=== PATIENT | female | born 1980 | race Caucasian/White ===

== ENCOUNTER 2019-04-01 01:20 | Inpatient (IN) ==
[2019-04-01] MEDS ORDERED: Lidocaine 1% 20 ML MDV INFILT PRN (01:40)
[2019-04-01] MEDS ORDERED: *HR* Nalbuphine 10 MG/ML AMPUL IVP PRN (01:40)
[2019-04-01] MEDS ORDERED: Famotidine 20 MG/2 ML VIAL IVP PRN (01:40)
[2019-04-01] MEDS ORDERED: Ondansetron 4 MG/2 ML VIAL IVP PRN (01:40)
[2019-04-01] MEDS ORDERED: Metoclopramide 10 MG/2 ML VIAL IVP PRN (01:40)
[2019-04-01] MEDS ORDERED: Naloxone 0.4 MG/ML INJ IVP PRN (01:40)
--- NOTE | 2019-04-01 01:44 | OB/GYN History & Physical ---
Date of Encounter: 04/01/19 Time of Encounter: 01:43 Assessment and Plan (1) 38 weeks gestation of Current visit: Yes Status: Acute (2) Intrauterine Current visit: Yes Status: Acute (3) GBS screening not performed Current visit: Yes Status: Acute (4) Spontaneous rupture of amniotic membranes Current visit: No Status: Acute Admit to L&D for observation of labor Expectant management Continuous electronic monitoring GBS unknown-will treat prophylactically Plan of care per consult with Dr. Rand Anticipate vaginal delivery History of Present Illness Chief complaint: PROM HPI: Ms. Ambrose is a 39 year old female at 38 weeks and 4 days gestation with an estimated date of of 04/12/19 dated by LMP. She has received 0 care throughout her . She reports she [place] and had trouble because they do not have a car and her partner is changing jobs. She reports she spontaneously ruptured at 1800 on 03/31/19. She reports clear fluid that had no odor. labs are pending. She denies any complications with previous pregnancies. Past Med Surg Social Fam HX - Past Medical History Medical history: no medical history Psychiatric history: no psych history - Past Surgical History Surgical History: no surgical history - Social History Smoking Status: Never smoker Alcohol use: unknown Drug use: unknown - Family History Mother Family Member Ethnicity: Non- Living Status: Still Living Hx Family Cardiac Disorders: No Hx Family Respiratory Disorders: No Hx Family Cancer: No Hx Family GI Disorders: No Hx Family Genitourinary Disorders: No Hx Family Endocrine Disorder: No Hx Family Musculoskeletal Disorders: No Hx Family Neurologic Disorders: No Hx Family HEENT Disorders: No Hx Family Autoimmune Disorders: No Hx Family Reproductive Disorders: No Hx Family Psychosocial Disorders: No Hx Family Medical Disorders: No Obstetrical History - Pregnancies : 3 Para: 1 Term: 1 : 0 Ab's: 1 Livin Medications and Allergies [id number]/Iron Fumarate/FA/Dss [ 19 Tablet] 04/01/19 [History] Allergy/AdvReac Type Severity Reaction Status Date / Time No Known Allergies Allergy Verified 04/01/19 01:33 Review of System OB All systems PM: reviewed and no additional remarkable complaints except as stated Exam - Constitutional Constitutional: well developed, well nourished, no acute distress, average body habitus - HEENT HEENT: PERRL, Normocephaly, Mucus Membranes Moist - Neck Neck exam: full ROM - Lungs Respiratory exam: CTAB - Cardiovascular Cardiovascular exam: RRR, +S1, +S2 - Breasts Breast: bilateral: normal - Abdomen Abdomen: Present: bowel sounds normal, gravid, non tender - Extremities Extremities exam: full ROM, normal capillary refill, normal inspection, radial pulses palpable and symmetrical - Vulva Vulva: bilateral: normal - Vagina Vagina: Present: normal moisture, discharge - Cervix Cervix: Present: discharge Dilation: 4 Effacement: 70 Station: -2 - Uterus Uterus exam: Present: normal size, normal contour - Anus/Rectum Anus/Rectum: Present: normal perianal skin Results Result Diagrams: 04/01/19 01:45 All other labs normal. - VTE Reasons for not Prescribing Prophylaxis: Treatment not Indicated - Low risk for VTE
[2019-04-01] MEDS ORDERED: Oxytocin 20 units/ LR 1000 mL 20 UNIT/1,000 ML BAG IVC SCH ×2 (01:45→11:47)
[2019-04-01] MEDS ORDERED: Penicillin G Potassium 5,000,000 UNIT in 0.9 % Sodium Chloride Mini Bag 100 ML IVPB ONE (01:53)
[2019-04-01 02:02] LABS: Basophils # 0.1 K/mcL (0.0-0.2); Basophils % 0.3 %; Eosinophils # 0.1 K/mcL (0.0-0.6); Eosinophils % 0.8 %; Hematocrit 37.8 % (35.3-44.9); Hemoglobin 12.9 g/dL (11.5-15.4); Immature Granulocytes % 0.4 % (0-4); Lymphocytes # 1.9 K/mcL (0.6-4.6); Lymphocytes % 11.2 %; Mean Corpuscular HGB Conc 34.1 g/dL (31.6-35.5); Mean Corpuscular Hemoglobin 31.4 pg (28.0-33.3); Monocytes # 0.6 K/mcL (0.0-1.3); Monocytes % 3.8 %; Neutrophils # 13.8 K/mcL (1.6-8.9); Platelet Count 289 K/mcL (140-400); Red Blood Count 4.11 M/mcL (3.82-4.97); Red Cell Distribution Width 13.5 % (11.5-14.5); Segmented Neutrophils % 83.5 %; White Blood Count 16.5 K/mcL (4.3-11.1)
[2019-04-01] MEDS: Ringers Solution, Lactated 1,000 ML IVC SCH ×2 (02:17→06:13)
[2019-04-01 02:46] LABS: Amphetamine Screen,Urine Negative ng/mL (Cutoff=1000); Barbiturate Screen,Urine Negative ng/mL (Cutoff=200); Benzodiazepines Screen,Urine Negative ng/mL (Cutoff=200); Cannabinoid Screen,Urine Positive ng/mL (Cutoff = 50); Cocaine Screen,Urine Negative ng/mL (Cutoff= 300); Opiate Screen,Urine Negative ng/mL (Cutoff=300); Phencyclidine Screen,Urine Negative ng/mL (Cutoff=25)
[2019-04-01 02:53] LABS: Rubella IgG Antibody POSITIVE (POSITIVE); Varicella Zoster IgG Antibody Positive
[2019-04-01 04:11] LABS: HIV-1&2 Antibody & p24 Ag Nonreactive (Nonreactive)
[2019-04-01] MEDS ORDERED: Penicillin G Potassium 2,500,000 UNIT in 0.9 % Sodium Chloride 100 ML IVPB SCH (06:00)
[2019-04-01 06:36] LABS: Hepatitis B Surface Antigen Nonreactive (Nonreactive)
[2019-04-01] MEDS ORDERED: *HR* FentaNYL (PF) 100 MCG/2 ML VIAL EP ONE (07:44)
[2019-04-01] MEDS ORDERED: Ropivacaine/PF 0.2% 20 ML VIAL EP ONE (07:44)
[2019-04-01] MEDS ORDERED: Epidural Premix (fent/bupiv) 110 ML EP SCH (07:45)
--- NOTE | 2019-04-01 07:53 | Anesthesia Evaluation PreOp ---
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: Denies Any Significant HX Other Medical History: GERD Anesthesia History: No Prior Anesthetic Complications, Past Anesthesia (geronimo) : Yes Test: Positive Alcohol Use: unknown Drug use: unknown Medications and Allergies [id number]/Iron Fumarate/FA/Dss [ 19 Tablet] 04/01/19 [History] Allergy/AdvReac Type Severity Reaction Status Date / Time No Known Allergies Allergy Verified 04/01/19 01:33 - Meds/Allergy Pre-op Review Medications Reviewed: Yes Allergies Reviewed: Yes Beta Blockers on Current Med List: No Anesthesia Results - Labs 04/01/19 01:45 Anesthesia Exam 135/87 88 16 fht 133 Height: 5'3" Weight: 141 NPO (# of Hours): 2 Pain Scale: 7 Pain Scale Used: Numeric (1 - 10) - HEENT Pupil (Motor): Pupils equal Mallampati: II Teeth: Poor dentition Oral Opening: Greater than 3 - SCIENTIFIC PROCESS OPERATOR LOC: Oriented SCIENTIFIC PROCESS OPERATOR Motor: Normal RUE, Normal LUE, Normal RLE, Normal LLE, Normal Face SCIENTIFIC PROCESS OPERATOR Sensory: Normal: RUE, LUE, RLE, LLE, Face - Cardiac Rhythm: Regular Murmur: None - Pulmonary Breath Sounds: bilateral Rhonchi Respiratory Effort: Symmetrical Anesthesia Assess/Plan ASA Score: 2 Level of consciousness: Cooperative Anesthetic Plan: Epidural (risks discussed questions answered, consented) Autologous Blood: No Monitoring Plan: Standard Monitors Recovery Plan: Other
[2019-04-01] MEDS ORDERED: Epidural Premix (fent/bupiv) 110 ML EP ONE (07:55)
[2019-04-01] MEDS ORDERED: *HR* FentaNYL (PF) 100 MCG/2 ML VIAL ONE (07:56)
[2019-04-01] MEDS ORDERED: Ropivacaine/PF 0.2% 20 ML VIAL ONE (07:56)
--- NOTE | 2019-04-01 08:20 | Anesthesia Procedures ---
Date of Encounter: 04/01/19 Time of Encounter: 08:18 Procedures: Anesthesia - Epidural/Spinal Patient ID/Chart reviewed: Yes Patient examined: Yes OB Eval: Gestational age: 39 OB Eval: : 3 OB Eval: Hx Para: 1 OB Eval: Dilated at (cm): 5 OB Eval: Contractions: Non-stressed pattern Consent Obtained: Yes Supplemental Oxygen: None/Room Air Site Prep: Aseptic Technique, Sterile prep and drape, 0.5% Chlorhexidine/Alcohol Patient position: upright Local Anesthetic: Lidocaine 1% Amount of Local Anesthetic used: 3 Touhy Needle Gauge: 18 Touhy Needle Depth (cm): 5 Catheter Depth at Skin (cm): 15 Test Dose (1.5% Lido + Epi): Volume given (mls): 3 Test Dose Result: Negative Loading Dose: Fentanyl (mcg): 100 Loading Dose: Other: Rop 0.2% 5cc Loading Dose Administered: Thru Touhy Needle Infusion Med: 0.125% Bupivacaine w/ 2 mcg/ml Fentanyl Infusion Rate (mls/hr): [address]: Tegaderm Interspace Used: L2-L3 Loss of Resistance ([place]): Yes Blood: No CSF: No Paresthesia: No Procedure: aseptic, technique, VSS, effective Vitals + FHT's: see nsg note
--- NOTE | 2019-04-01 09:34 | OB/GYN Procedure Note ---
Delivery - Delivery Date: 04/01/19 Provider: Aura Rain Intrapartum events: none Delivery induction: none Delivery augmentation: pitocin Delivery monitor: external FHT, external uterine Anesthesia: epidural Quantitated Blood Loss: 150 - (s) Infant A Delivery Date: 04/01/19 Delivery Time: 09:10 Presentation: vertex Position: MARY Route of delivery: Gender: Female Viability: Viable at 1 minute: 9 at 5 mins: 9 Shoulder Dystocia: not encountered Specimens collected: cord blood Placenta: spontaneous Cord: 3 umbilical vessels - Repair Episiotomy: none Laceration Description: Superficial (superficial, hemostatic right vaginal wall) - Complications Delivery complications: none Delivery comments: Pt presented following SROM and underwent augmentation with pitocin. She progressed normally to complete and +2 and then pushed effectively to for viable female "Halyn" with apgars 9 at one minute and 9 at five minutes. After pulsations ceased the cord was clamped and cut and the placenta delivered spontaneous and intact. A superficial, hemostatic, right vaginal laceration was noted and was left unrepaired. EBL 150ml. Mother and baby stable in kangaroo care following . - Disposition Mom disposition: stable in LDR disposition: stable in LDR
[2019-04-01] MEDS ORDERED: Benzocaine/Menthol 56 GM AEROSOL SPRAY TP PRN (11:47)
[2019-04-01] MEDS ORDERED: Measles/Mumps/Rubella Vacc 0.5 ML VIAL SQ PRN (11:47)
[2019-04-01] MEDS ORDERED: Acetaminophen 325 MG TABLET PO PRN (11:47)
[2019-04-01] MEDS: Ibuprofen 600 MG TABLET PO PRN ×2 (12:59→21:30)
[2019-04-02] MEDS: Ibuprofen 600 MG TABLET PO PRN ×2 (04:51→09:15)
[2019-04-02 08:08] VITALS: BP 100/64
--- NOTE | 2019-04-02 08:36 | Discharge Summary ---
Date of Encounter: 04/02/19 Time of Encounter: 08:34 - Discharge Diagnosis (1) Vaginal delivery Priority: Primary Status: Acute Comments: Continue routine care discharge home follow up with GEOVANNI Chavarria in 4-6 weeks - Discharge Medications Prescriptions: New Benzocaine/Menthol [place] [Dermoplast [place]] 1 appl TP QID PRN aerosol PRN Reason: See Comments Continued [id number]/Iron Fumarate/FA/Dss [ 19 Tablet] Home Medications: Qci695/Iron Fumarate/FA/Dss [ 19 Tablet] 04/01/19 [History] Benzocaine/Menthol [place] [Dermoplast [place]] 1 appl TP QID PRN aerosol 04/02/19 [Rx] Allergies/Adverse Reactions: Allergy/AdvReac Type Severity Reaction Status Date / Time No Known Allergies Allergy Verified 04/01/19 01:33 Data Procedures and tests throughout hospitalization: Laboratory Tests 04/01/19 04/01/19 04/01/19 01:45 01:45 01:45 WBC RBC Hgb Hct MCV MCH MCHC RDW Plt Count MPV Immature Gran % Seg Neutrophils % Lymphocytes % Monocytes % Eosinophils % Basophils % Neutrophils # Lymphocytes # Monocytes # Eosinophils # Basophils # Urine Opiates Screen Negative Ur Buprenorphine Scrn Negative Ur Barbiturates Screen Negative Ur Phencyclidine Scrn Negative Ur Amphetamines Screen Negative U Benzodiazepines Scrn Negative Urine Cocaine Screen Negative U Marijuana (THC) Screen Positive H Ur Drug Screen Interp See Below T.pallidum Ab Interpret Negative Hep Bs Antigen Nonreactive HIV Ag/Ab Combo Qual Nonreactive Rubella IgG Antibody POSITIVE VZV IgG Antibody Positive Blood Type A POSITIVE 04/01/19 01:45 WBC 16.5 H RBC 4.11 Hgb 12.9 Hct 37.8 MCV 92.0 MCH 31.4 MCHC 34.1 RDW 13.5 Plt Count 289 MPV 10.0 Immature Gran % 0.4 Seg Neutrophils % 83.5 Lymphocytes % 11.2 Monocytes % 3.8 Eosinophils % 0.8 Basophils % 0.3 Neutrophils # 13.8 H Lymphocytes # 1.9 Monocytes # 0.6 Eosinophils # 0.1 Basophils # 0.1 Urine Opiates Screen Ur Buprenorphine Scrn Ur Barbiturates Screen Ur Phencyclidine Scrn Ur Amphetamines Screen U Benzodiazepines Scrn Urine Cocaine Screen U Marijuana (THC) Screen Ur Drug Screen Interp T.pallidum Ab Interpret Hep Bs Antigen HIV Ag/Ab Combo Qual Rubella IgG Antibody VZV IgG Antibody Blood Type Date of admission: 04/01/19 01:20 Consults: 04/01/19 11:47 Consult to Information Assurance [CONS] Routine Reason for SW Consult: no care Discharging clinician: Amalia Sorensen Anticipated date of discharge: 04/02/19 - Patient Status Disposition: Home, Self-Care Condition: Good Functional capacity at discharge: independent ambulation - Discharge Instructions Follow Up With: Aura Rain CNM [Non-Partnered Physician] - - Diet and Activity Activity: increase activity as tolerated Diet: regular diet Hospital Course Reason for admission: active labor Delivery: Episiotomy: none Other procedures: none complications: none Discharge diagnosis: IUP at term delivered [place] baby: female (bottle feeding) Time Attestation: Total time spent providing and/or coordinating discharge services: Time Spent: Less than 30 minutes Exam - Constitutional Vitals: Temp Pulse Resp BP Pulse Ox 98.0 F 72 16 100/64 99 04/02/19 07:40 04/02/19 07:40 04/02/19 07:40 04/02/19 07:40 04/02/19 07:40 General appearance IM: A&O X 3, pleasant, answers questions appropriately - Respiratory Respiratory exam: Present: CTAB - Cardiovascular Cardiovascular exam IM: Present: RRR, +S1, +S2 - GI/Abdominal GI/Abdominal exam IM: normal bowel sounds - Uterine Tone: Firm Uterus Position: At Umbilicus, Midline - Extremities Exam Extremities exam IM: Present: full ROM, normal capillary refill, normal inspection - Neurological Exam Neurological exam: alert, oriented X3, reflexes normal
[2019-04-02] MEDS ORDERED: Prenatal Vit/FA 1 EACH TABLET PO SCH (09:00)
== END 2019-04-02 10:30 | disposition home or self-care (01) | DRG 560 ==
LOC: 1NENULAB → OBSVTOIN 01:20 → 1NENUOBS 11:40
PROVIDERS: ADMIT Advanced Practice Midwife; ATTEND Advanced Practice Midwife